=== PATIENT | female | born 1965 | race Caucasian/White ===

== ENCOUNTER 2017-05-25 12:39 | Inpatient (IN) | payer OTHER ==
[~2017-05-25] VITALS: Ht 182.9 cm; Wt 79.8 kg
[~2017-05-25 12:39] MED LIST: ALBU0.08 INH; ALBUAER2 INH; ARIP30TA3 PO; BACL10TA PO; CARB1TAB38 PO; DIVA500T59 PO; HYDR-5688 PO; LACO200T PO; TRAZ100T29 PO; ZONI50CA2 PO
[2017-05-25 14:16] VITALS: BP 141/90; PULSE 66; O2SAT 95
[2017-05-25] MEDS ORDERED: CLB100 PO (15:20)
[2017-05-25] MEDS ORDERED: TIOT1SPR INH (15:20)
[2017-05-25] MEDS ORDERED: IBUP-1428 PO (15:20)
[2017-05-25 15:34] VITALS: BP 141/90; PULSE 66; TEMP 36.5; O2SAT 95; Ht 182.9 cm; Wt 79.8 kg
[2017-05-25] MEDS ORDERED: DIVA500T3 PO (15:45)
[2017-05-25] MEDS ORDERED: ZONI50CA2 PO (15:45)
[2017-05-25] MEDS ORDERED: BRIV50TA PO (15:45)
[2017-05-25] MEDS ORDERED: ABL10 PO (15:45)
[2017-05-25] MEDS ORDERED: ONDANSETRON INJ 2 MG/ML 2 ML VIAL IV PRN (15:45)
[2017-05-25] MEDS ORDERED: POLYETHYLENE (MIRALAX) 17 GM PACK PO PRN (15:45)
[2017-05-25] MEDS ORDERED: CARB200T PO (15:45)
[2017-05-25] MEDS ORDERED: ARIP30TA3 PO ×2 (15:45)
[2017-05-25] MEDS ORDERED: CTF50 PO (15:45)
[2017-05-25] MEDS ORDERED: ACETAMINOPHEN 325 MG TAB PO PRN (15:45)
--- NOTE | 2017-05-25 15:48 | History and Physical ---
History & Physical Date & Time of Service: May 25, 2017 at 15:25 Chief Complaint: Multiple Seizures, Hx Of Brain Ca Primary Care Physician: Sudhakar Frye M.D. History of Present Illness Source: patient This is a 51-year-old female with PMHx of meningioma removal in 2010, chronic migraine, focal epilepsy with impairment of consciousness, chronic headaches, anxiety, COPD, gait disturbance, low back pain, and cervical radiculopathy and chronic tobacco abuse with 1.5 ppd x 40 years, who presents as a direct transfer from [facility] to [facility] after cluster seizures during MRI which was being performed today for evaluation of seizures. This was witnessed by lab technician and referred to our facility for seizure workup. The patient has seen Dr. Blanton with neurology in the past, most recently she was seen on March 04, 2017 as an outpatient. The patient also has history of psychogenic nonepileptic induced seizures and/or pseudoseizures. Her antiepileptic medications include Depakote ER 500 mg twice a day, carbamazepine 200 mg twice a day, Vimpat 200 BID, Briviact 25 mg BID, and has recently finished tapering off Zonegran due to side effects. She has had to use steroid injections, ketorolac and Phenergan injections for intractable migraine headaches in the past. She was also being seen by pain management for possible Botox injections for her chronic migraine headaches. She has a repeat follow- up this month with Dr. Blanton. The patient reports currently feeling very sore and has a left temporal headache rated 8/10. No photophobia or phonophobia, no sensitivity to smell. She denies any injury to the mouth or tongue during seizures. She does report a postictal phase of confusion. . Her vision is blurred slightly but has been improving this afternoon. Her main complaint is that she is hungry currently, and requesting her boyfriend go to get her a fried chicken sandwich. Past Medical/Surgical History Anxiety Cervical radiculopathy Chronic headaches Chronic migraine COPD Focal absolute C with impairment of consciousness Gait disturbance Low back pain Pseudoseizures Surgical history Meningioma removal in 2010 Left leg lipoma removal Benign breast biopsy Social History Smoking Status: Current Every Day Smoker (1.5 ppd x 40 yrs) Smokeless Tobacco Use: No Alcohol Use: none Drug Use: none Marital Status: Housing status: lives with significant other Occupational Status: disabled Allergies Coded Allergies: No Known Allergies (Unverified , 04/23/17) Home Medications Scheduled Albuterol (Ventolin), 2 PUFFS INH QID Baclofen (Lioresal), 10 MG PO TID Brivaracetam (Briviact), 50 MG PO BID Carbamazepine (Tegretol), 1 TAB PO BID Celecoxib (CeleBREX), 1 CAP PO BID Divalproex Sodium (Depakote Er), 1 TAB PO BID Lacosamide (Vimpat), 200 MG PO BID Trazodone Hcl (Trazodone), 100 MG PO HS Zonisamide (Zonegran), 150 MG PO BID Scheduled PRN Diclofenac Potassium (Diclofenac Potassium), 1 TAB PO TID PRN for Headache Ibuprofen (Motrin), 800 MG PO Q8H PRN for Moderate Pain Miscellaneous Medications Tiotropium [place] (Spiriva Respimat), 1 PUFF INH Review of Systems Constitutional: No fever, No chills, No sweats Eyes: + worsening of vision, + problem reported (blurred) ENT: No hearing loss, No trouble swallowing Respiratory: + cough, + wheezing, No sputum, No shortness of breath, No dyspnea on exertion, No dyspnea at rest Genitourinary - Female: No dysuria, No urinary frequency, No hematuria Neurologic: No memory loss, No paralysis, No numbness/tingling Psychiatric: No depression symptoms, No anxiety Endocrine: + fatigue Integumentary: No rash, No itch Physical Exam Vital Signs Date Time Temp Pulse Resp B/P (MAP) Pulse Ox O2 Delivery O2 Flow Rate FiO2 05/25/17 14:16 66 17 141/90 (107) 95 Room Air General Appearance: WD/WN, no apparent distress Head: normocephalic, atraumatic Eyes: PERRL, EOMI ENT: hearing grossly normal, pharynx normal, + pertinent finding (MMM) Neck: supple, no JVD Respiratory/Chest: no respiratory distress, no accessory muscle use, + pertinent finding (faint expiratory wheeze, + cough nonproductive, on room air) Cardiovascular: no murmur, normal peripheral pulses, + pertinent finding ( regular rhythm, + tachycardic) Abdomen/GI: normal bowel sounds, non tender, soft Back: normal inspection Neurologic/Psych: alert, normal mood/affect, normal reflexes, oriented x 3 Skin: normal color, warm/dry Impression Assessment and Plan This is a 51-year-old female with PMHx of meningioma removal in 2010, chronic migraine, focal epilepsy with impairment of consciousness, chronic headaches, anxiety, COPD, gait disturbance, low back pain, and cervical radiculopathy and chronic tobacco abuse with 1.5 ppd x 40 years, who presents as a direct transfer from [facility] to [facility] after cluster seizures during MRI which was being performed today for evaluation of seizures. Seizure/ pseudoseizure Chronic Migraine Focal epilepsey with impairment of consciousness - Direct admission from [facility], Admit to tele, currently in ICU for tele overflow - Neurology consulted- Dr. Blanton - Neuro checks Q4H for now - Ativan 1 mg Q1H prn for seizure activity - Continue current antiepileptic medications: Depakote ER 500 mg twice a day, carbamazepine 200 mg twice a day, Vimpat 200 BID, Briviact 25 mg BID - Check depakote and carbamazepine levels with fasting am labs Chronic Headache - Can continue ibuprofen 800 mg Q8H prn for headaches as outpatient. - Will need to discuss if pt is still seeing pain managment and if considering botox injections Mood disorder - ? bipolar disorder and borderline personality disorder - Pt was previously on abilify 30 mg daily, but per her report was d/c's 1 yr ago. She does not follow with a psychiatrist as an outpatient currently. - Likely that antiepileptics are also working as mood stabilizers. COPD Chronic Tobacco Abuse - Cessation of smoking encouraged - consider if pt would be a good candidate for smoking cessation with chantix? - Will order nicotine patch 21 mcg for now - Does not require supplemental O2 Cervical Radiculopathy Gait disturbance - stable DVT ppx: Teds, scds, heparin CODE STATUS: FULL CODE Disposition: From home, to assist with d/c planning. Level of Care Telemetry Resuscitation Status FULL RESUSCITATION VTE Prophylaxis Risk Level: Very Low Given or contraindicated: Unfractionated heparin SQ, T.E.D. Stockings, SCD's
[2017-05-25] MEDS ORDERED: DICLOFENAC SOD 50 MG PO PRN (16:00)
[2017-05-25 16:01] VITALS: BP 136/89; PULSE 75; TEMP 36.5; O2SAT 98
[2017-05-25] MEDS ORDERED: CLB/200 PO (16:27)
[2017-05-25] MEDS: [UNRECOGNIZED DRUG - REMARK] SCH ×2 (16:30→23:48)
[2017-05-25] MEDS ORDERED: LORAZEPAM 2 MG/ML 1 ML VIAL IV PRN (16:45)
[2017-05-25 16:46] LABS: MEAN CORPUSCULAR HEMOGLOBIN 31.8 pg (25-34); MEAN CORPUSCULAR HGB CONC 33.5 g/dl (32-36); MEAN PLATELET VOLUME 8.9 fL (7.4-10.4); PLATELET COUNT 201 K/uL (130-400); RED BLOOD COUNT 4.21 M/uL (4.2-5.4); WHITE BLOOD COUNT 6.17 K/uL (4.8-10.8)
[2017-05-25 16:58] LABS: PROTHROMBIN TIME (PATIENT) 10.6 SECONDS (9.0-12.0)
[2017-05-25] MEDS ORDERED: ALBUTEROL HFA 8 GM INHALER INH SCH (17:00)
[2017-05-25] MEDS ORDERED: ALBUTEROL HFA 8 GM INHALER INH PRN (17:00)
[2017-05-25 17:21] LABS: BUN/CREATININE RATIO 22.6 (10-20); CALCIUM 8.6 mg/dl (8.5-10.1); CREATININE 0.53 mg/dl (0.60-1.20); POTASSIUM 3.6 mmol/L (3.5-5.1)
[2017-05-25] MEDS ORDERED: IBUPROFEN 800 MG TAB PO PRN (18:30)
[2017-05-25 18:50] VITALS: PULSE 72; O2SAT 98
[2017-05-25] MEDS: ALBUT/IPRATROP 3MG/0.5MG NEB 3 ML VIAL INH SCH (18:51)
[2017-05-25] MEDS ORDERED: PNEUMOCOCCAL ADMINISTRATION CHARGE ONE (19:00)
[2017-05-25] MEDS: KETOROLAC TROMETHAMINE 30 MG/ML VIAL IV PRN (19:19)
[2017-05-25 20:00] VITALS: BP 155/95; PULSE 73; TEMP 36.6; O2SAT 97
[2017-05-25] MEDS ORDERED: PNEUMOCOCCAL POLYSACCHARIDES 25 MCG/0.5 ML VIAL/SYR IM. ONE (20:00)
[2017-05-25] MEDS: DIVALPROEX 500 MG EXTENDED RELEASE TAB PO SCH (21:00)
[2017-05-25] MEDS ORDERED: ZONISAMIDE 25 MG CAP PO SCH (21:00)
[2017-05-25] MEDS ORDERED: TRAZODONE HCL 100 MG TAB PO PRN (21:00)
[2017-05-25] MEDS: CARBAMAZEPINE 200 MG TAB PO SCH (21:00)
[2017-05-25] MEDS ORDERED: TRAZODONE HCL 100 MG TAB PO SCH (21:00)
[2017-05-25] MEDS: BACLOFEN 10 MG TAB PO SCH (21:00)
[2017-05-25] MEDS: LACOSAMIDE 50 MG TAB PO SCH (21:00)
[2017-05-25] MEDS ORDERED: ZONISAMIDE 100 MG CAP PO SCH (21:00)
[2017-05-25] MEDS: HEPARIN SOD 5000 UNIT/0.5 ML CARP SQ SCH (22:00)
[2017-05-25 23:59] VITALS: BP 125/69; PULSE 64; TEMP 36.6; O2SAT 95
[2017-05-26] MEDS ORDERED: KETOROLAC TROMETHAMINE 30 MG/ML VIAL IV PRN (01:00)
[2017-05-26] MEDS: KETOROLAC TROMETHAMINE 30 MG/ML VIAL IV PRN ×3 (01:30→13:48)
[2017-05-26 04:00] VITALS: BP 144/83; PULSE 61; TEMP 36.5; O2SAT 95
[2017-05-26 05:50] LABS: BASO % 0.3 %; BASO ABS # 0.02 K/uL (0-0.2); COMPLETE YES; EOS % 1.5 %; HEMATOCRIT 40.6 % (37-47); IG% 0.3 %; LYMPH % 30.6 %; LYMPH ABS # 2.26 K/uL (1.2-3.4); MEAN CELL VOLUME 95.5 fL (80-100); MEAN CORPUSCULAR HEMOGLOBIN 31.8 pg (25-34); MEAN CORPUSCULAR HGB CONC 33.3 g/dl (32-36); MEAN PLATELET VOLUME 8.9 fL (7.4-10.4); MONO % 8.8 %; NEUT % 58.5 %; PLATELET COUNT 177 K/uL (130-400); RED BLOOD COUNT 4.25 M/uL (4.2-5.4); WHITE BLOOD COUNT 7.39 K/uL (4.8-10.8)
[2017-05-26 06:15] LABS: BUN/CREATININE RATIO 31.4 (10-20); CALCIUM 8.4 mg/dl (8.5-10.1); CREATININE 0.64 mg/dl (0.60-1.20); POTASSIUM 3.8 mmol/L (3.5-5.1)
[2017-05-26] MEDS: HEPARIN SOD 5000 UNIT/0.5 ML CARP SQ SCH (06:30)
[2017-05-26 07:40] VITALS: PULSE 74; O2SAT 97
[2017-05-26] MEDS: ALBUT/IPRATROP 3MG/0.5MG NEB 3 ML VIAL INH SCH ×2 (07:43→11:20)
[2017-05-26] MEDS: [UNRECOGNIZED DRUG - REMARK] SCH (08:00)
[2017-05-26] MEDS: DIVALPROEX 500 MG EXTENDED RELEASE TAB PO SCH (08:18)
[2017-05-26] MEDS: BACLOFEN 10 MG TAB PO SCH ×2 (08:19→13:48)
[2017-05-26] MEDS: CARBAMAZEPINE 200 MG TAB PO SCH (08:19)
[2017-05-26] MEDS: LACOSAMIDE 50 MG TAB PO SCH (08:19)
[2017-05-26 08:25] VITALS: BP 141/73; PULSE 78; TEMP 36.7; O2SAT 98
[2017-05-26] MEDS ORDERED: ARIPIprazole TAB 15 MG TAB PO SCH (09:00)
[2017-05-26] MEDS ORDERED: NICOTINE 21 MG/24 HR TDSY TD SCH (09:00)
--- NOTE | 2017-05-26 11:08 | Neurology Consultation ---
Neurology Consultation Date of Consultation: May 26, 2017. Attending Physician: Alisa Ledesma DO Primary Care Physician: Sudhakar Frye M.D. Reason for Consultation: Patient is a 51-year-old, who was asked to see the request of Yohana Hill PA-C, and Dr. Schwab, for neurologic consultation regarding serial seizures. History of Present Illness Source: patient, caregiver, clinic records, hospital records Prior to surgery in 2010, the patient tells me that she has had no history of seizures or significant headaches. CT scan incidentally showed a large left- sided meningioma (about the size of a "golf ball") which was subsequently removed by a neurosurgeon at [facility]. 2 weeks after surgery she had her first seizure that she has had intermittent seizures since. The seizures have been refractory to multiple medications, and she has tried and failed phenytoin, levetiracetam, Tegretol, and topiramate She has been followed by Dr. Blanton since May 2015. An EEG at that time showed some focal irritability and potentially epileptogenic activity in the left frontotemporal head region with focal background slowing in this region also, particularly posteriorly. She last saw Dr. Blanton in February 2017. At that time, she was tapering the patient off Zonegran which she has been on for almost 2 months now. She has been on Briviact 5 mg twice a day started earlier this summer. She is on Depakote ER 500 mg twice a day and higher doses gave her side effects. She takes carbamazepine 200 mg twice a day and has no side effects. In her note , Dr. Blanton wondered about tapering this off. She has been on Vimpat 200 mg twice a day and believes that this medicine helps her considerably and has no side effects. The patient averages 1 or 2 seizures per month. She can get some morning of nausea and tingling in her right upper extremity as well as lightheadedness all lasting for about 10 seconds. Then she has no recall and will wake up supposedly having a generalized tonic-clonic seizure or a complex partial seizure. She has had testing at [place] and there has been at least one proven pseudoseizure. Her last seizure prior to May 25 was about 1 week or so previous when she said she had 5 seizures in one day. She had stress. The patient tells me that she never had significant headaches prior to her meningioma removal. He has had good help with Botox for the last 6 months and averages about a headache once a week. She will start out with pain around her higher protestant area and it will progress to a bioccipital and bifrontal pounding sharp pain with photophobia, sonophobia, nausea, and vomiting. The patient tells me that she's had significant depression and anxiety since 1994, when her mother . She is going to be seeing psychiatry in June of this year. The patient tells me that she has 2 tiny aneurysm discovered at the time of surgery but these do not need additional treatment. On May 25, she woke at 0530 hours as usual feeling well. She was not sick or ill and took her medicine as usual. She went to [facility] for her MRI of the cervical and lumbar spine at 0900 hours. Some time when the MRIs are completed as she was coming out of the machine she felt the typical symptoms that warn her that a seizure is coming. She told attacks and the next thing she remembers is "waking up in the ambulance" coming to our institution. Apparently she had a cluster of 4 or 5 tonic-clonic seizures while in the MRI area and in the [facility] emergency room. He was transferred to our institution. May 25: 1416 hours, pulse was 66, respiratory rate 17, O2 saturation 95% and blood pressure 141/90. Her neurologic examination was largely unremarkable. She has had no seizure activity since admission here, as reported by nursing staff. Patient herself feels back to baseline now. She does have some mild pressure in her head which is normal for her and she feels "sore all over" in her muscles which is typical after seizures. In the hospital, CBC and chem profile were unremarkable. This morning, Depakote level was 33 and carbamazepine level 5.2. 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 Proven pseudoseizures as well. Intermittent, severe, refractory migraine headaches, helped with Botox COPD Long-standing anxiety depressive disorder Chronic spine pain cervical and lumbar regions Post meningioma removal left temporal head region Post appendectomy Total abdominal hysterectomy age 34 Left leg lipoma removal in the past Left shoulder surgery Right breast biopsy, benign Family History at 65 of metastatic uterine cancer Father age 81 with heart issues and diabetes She has one son age 31 and 3 grandchildren Social History Patient smokes a half a pack of cigarettes per day for 40 years. Patient does not use alcohol. 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 Following surgery she has been disabled and unable to work and is on social security disability because of her seizure disorder Smoking Status: Current every day smoker Smokeless Tobacco Use: No Alcohol Use: none Drug Use: none Marital Status: Housing Status: lives with significant other Occupation Status: disabled Allergies Coded Allergies: No Known Allergies (Unverified , 04/23/17) Current Inpatient Medications Current Inpatient Medications Medications (Trade) Dose Ordered Sig/Soha Route Start Time Stop Time Status Last Admin Dose Admin Heparin Sodium (Porcine) (Heparin Sq 5000 Unit/0.5ml) 5,000 unit Q8 SQ 05/25/17 22:00 06/24/17 21:59 05/26/17 06:30 5,000 UNIT Acetaminophen (Tylenol Tab) 650 mg Q4H PRN PO 05/25/17 15:45 06/24/17 15:44 Ondansetron HCl (Zofran Inj) 4 mg Q6H PRN IV 05/25/17 15:45 06/24/17 15:44 Polyethylene (Miralax Powder Packet) 17 gm DAILY PRN PO 05/25/17 15:45 06/24/17 15:44 Baclofen (Lioresal Tab) 10 mg TID PO 05/25/17 21:00 06/24/17 20:59 05/26/17 08:19 10 MG Carbamazepine (Tegretol Tab) 200 mg BID PO 05/25/17 21:00 06/24/17 20:59 05/26/17 08:19 200 MG Divalproex Sodium (Depakote Extended Rel Tab) 500 mg BID PO 05/25/17 21:00 06/24/17 20:59 05/26/17 08:18 500 MG Miscellaneous Information (Order Awaiting Action) 1 ea QS N/A 05/25/17 16:30 06/24/17 16:29 Diclofenac Sodium (Voltaren-Substitute) 50 mg TID PRN PO 05/25/17 16:00 06/24/17 15:59 Lacosamide (Vimpat Tab) 200 mg BID PO 05/25/17 21:00 06/24/17 20:59 05/26/17 08:19 200 MG Nicotine (Nicoderm Cq 21MG Patch) 1 patch QAM TD 05/26/17 09:00 06/25/17 08:59 05/26/17 08:18 1 PATCH Miscellaneous (Remove Nicoderm Patch) 1 ea HS N/A 05/26/17 09:00 06/25/17 08:59 05/26/17 09:05 1 EA Albuterol (Ventolin Hfa Inhaler) 2 puffs QID PRN INH 05/25/17 17:00 06/24/17 16:59 Albuterol/ Ipratropium (Duoneb) 3 ml QIDR INH 05/25/17 20:00 06/24/17 19:59 05/26/17 07:43 3 ML Lorazepam (Ativan Inj) 1 mg Q1H PRN IV 05/25/17 16:45 06/24/17 16:44 Trazodone HCl (Desyrel Tab) 100 mg HS PRN PO 05/25/17 21:00 06/24/17 20:59 Ibuprofen (Motrin Tab) 800 mg TID PRN PO 05/25/17 18:30 06/24/17 18:29 Ketorolac Tromethamine (Toradol Inj) 30 mg ONE PRN IV 05/25/17 18:30 05/30/17 18:29 05/26/17 08:16 30 MG Ketorolac Tromethamine (Toradol Inj) 30 mg Q6H PRN IV 05/26/17 01:00 05/31/17 00:59 Review of Systems Constitutional: No weakness, No fatigue Eyes: No worsening of vision, No diplopia ENT: No hearing loss, No tinnitus Respiratory: + cough, No shortness of breath Cardiovascular: No chest pain, No palpitations Abdomen: No pain, No nausea Musculoskeletal: + muscle pain, No joint pain Genitourinary - Female: No dysuria, No urinary incontinence Neurologic: No weakness, No numbness/tingling, No balance problems Psychiatric: + depression symptoms, + anxiety Endocrine: No fatigue Hematologic / Lymphatic: No abnormal bleeding/bruising Integumentary: No rash Allergic / Immunologic: No hives Physical Exam Vital Signs (Past 24 Hrs): Date Time Temp Pulse Resp B/P (MAP) Pulse Ox O2 Delivery O2 Flow Rate FiO2 05/26/17 08:25 36.7 78 19 141/73 (95) 98 Room Air 05/26/17 08:00 Room Air 05/26/17 07:40 74 16 97 Room Air 05/26/17 04:00 Room Air 05/26/17 04:00 36.5 61 16 144/83 (103) 95 Room Air 05/25/17 23:59 36.6 64 20 125/69 (87) 95 Room Air 05/25/17 23:59 Room Air 05/25/17 20:00 Room Air 05/25/17 20:00 36.6 73 21 155/95 (115) 97 Room Air 05/25/17 18:50 72 16 98 Room Air 05/25/17 16:01 36.5 75 19 136/89 (105) 98 Room Air 05/25/17 15:34 36.5 66 17 141/90 95 Room Air 05/25/17 14:16 66 17 141/90 (107) 95 Room Air Patient is right-handed. The patient is awake and alert. Speech is normal without aphasia or dysarthria. Mentation and thought processes are intact with orientation and normal fund of knowledge. Mood and affect are normal and appropriate. Appearance and grooming are normal. The discs are sharp with positive venous pulsations. There are no exudates, hemorrhages, or blood vessel changes seen. Pupils are 4mm bilaterally and reactive to light. Extraocular eye muscles are intact without nystagmus. Visual acuity and visual grant seem normal grossly to confrontation. There are no deficits to sensation of the face bilaterally. Corneal reflexes are positive bilaterally. Facial strength and symmetry is normal bilaterally. Hearing seems intact grossly to voice and finger rub. Palate moves well without asymmetry. There is normal sternocleidomastoid and trapezius strength bilaterally. Tongue is midline with good strength bilaterally. Neck is with full range of motion without discomfort. There are no cervical bruits. There are no cranial or ocular bruits. Heart is without murmur. Cervical, thoracic, and lumbar spine are nontender to palpation. Gait was not tested but stance sitting up in bed is normal With outstretched arms there is no drift. There are no resting, postural, or action tremors. There is no ataxia with [id number] testing. There is good facility in the hands. There are no abnormal involuntary movements noted. Motor strength is 5/5 diffusely in the left arm and leg both proximally and distally. In the right upper extremity and right lower extremity she has 4+/5 strength diffusely (his which she says is from her surgery) but I detect giveaway weakness with the exam, thus questioning full effort. The limbs have good tone without rigidity or spasticity, and there is no atrophy noted. Muscle bulk is normal, there is no tenderness, no myotonia noted to percussion, and no fasciculations seen. Sensory examination is intact to pin and touch throughout all four limbs. Reflexes are 2/4 in the biceps, triceps, brachioradialis, quadriceps, and Achilles tendons bilaterally. Toes are downgoing with plantar stimulation bilaterally. Peripheral pulses are present and of normal quality distally in all four limbs. There is no peripheral edema noted. Laboratory Results Past 24 Hours: 05/26/17 05:19 Red Blood Count 4.25, Mean Corpuscular Volume 95.5, Mean Corpuscular Hemoglobin 31.8, Mean Corpuscular Hemoglobin Concent 33.3, Mean Platelet Volume 8.9, Neutrophils (%) (Auto) 58.5, Lymphocytes (%) (Auto) 30.6, Monocytes (%) (Auto) 8.8, Eosinophils (%) (Auto) 1.5, Basophils (%) (Auto) 0.3, Neutrophils # (Auto) 4.33, Lymphocytes # (Auto) 2.26, Monocytes # (Auto) 0.65, Eosinophils # (Auto) 0.11, Basophils # (Auto) 0.02 05/26/17 05:19 Test 05/25/17 16:08 05/26/17 05:19 Prothrombin Time 10.6 SECONDS (9.0-12.0) Prothromb Time International Ratio 1.0 (0.9-1.1) White Blood Count 7.39 K/uL (4.8-10.8) Red Blood Count 4.25 M/uL (4.2-5.4) Hemoglobin 13.5 g/dL (12.0-16.0) Hematocrit 40.6 % (37-47) Mean Corpuscular Volume 95.5 fL (80-100) Mean Corpuscular Hemoglobin 31.8 pg (25-34) Mean Corpuscular Hemoglobin Concent 33.3 g/dl (32-36) Platelet Count 177 K/uL (130-400) Mean Platelet Volume 8.9 fL (7.4-10.4) Neutrophils (%) (Auto) 58.5 % Lymphocytes (%) (Auto) 30.6 % Monocytes (%) (Auto) 8.8 % Eosinophils (%) (Auto) 1.5 % Basophils (%) (Auto) 0.3 % Neutrophils # (Auto) 4.33 K/uL (1.4-6.5) Lymphocytes # (Auto) 2.26 K/uL (1.2-3.4) Monocytes # (Auto) 0.65 K/uL (0.11-0.59) Eosinophils # (Auto) 0.11 K/uL (0-0.5) Basophils # (Auto) 0.02 K/uL (0-0.2) RDW Standard Deviation 45.8 fL (36.4-46.3) RDW Coefficient of Variation 13.1 % (11.5-14.5) Immature Granulocyte % (Auto) 0.3 % Immature Granulocyte # (Auto) 0.02 K/uL (0.00-0.02) Anion Gap 5.0 mmol/L (3-11) Est Creatinine Clear Calc Drug Dose 122.7 ml/min Estimated GFR () 121.4 Estimated GFR (Non- 104.8 BUN/Creatinine Ratio 31.4 (10-20) Calcium Level 8.4 mg/dl (8.5-10.1) Valproic Acid (Depakene) Level 33 mcg/ml (50-100) Carbamazepine (Tegretol) Level 5.2 mcg/ml (4-12) Date/Time Source Procedure Growth Status 05/25/17 14:30 Nasal MRSA DNA Surveillance Screen - Final Specimen Negative for MRSA by DNA Probe Complete Impression 1. Epilepsy This has been refractory to multiple medication. Unfortunately she is very difficult because she has known seizures (with a known left frontotemporal area of potentially epileptogenic activity) with proven pseudoseizures in the past. I have no way of knowing of these events yesterday were true epilepsy versus pseudoseizures, although her mental status and exam was quite normal which would be somewhat atypical for multiple serial seizures (as I would expect a prolonged post ictal state) Currently, neurologic examination is unremarkable. She does have some right- sided weakness compared to the left but this is somewhat inconsistent and I detect giveaway weakness on the exam. 2. Chronic intermittent migrainous and other headaches. These have been since the meningioma surgery and refractory to medication also. Fortunately she has some relief with Botox 3. Significant depression and anxiety. 4. Status post left temporal area meningioma removal Plan 1. I see no need for additional neurologic testing at this time. 2. Anticonvulsant medications: Increase Briviact to 50mg twice daily. She will have to bring this in from home as we do not have this on formulary here Keep carbamazepine 200 mg twice a day. Keep Depakote ER 500 mg twice a day. Keep Vimpat 200 mg twice a day Remain off Zonegran and all other anticonvulsants. 3. I recommend she follow up with pain management as an outpatient for her headaches and continued Botox 4. I recommend she keep her psychiatry appointment in June 2017 5. Follow-up with Dr. Blanton as an outpatient in the next 1-2 weeks. I spoke with Dr. Blanton regarding this case including diagnoses and treatment options. I spoke with Dr. Ledesma regarding this case including diagnoses and treatment options.
[2017-05-26 11:21] VITALS: PULSE 78; O2SAT 98
[2017-05-26 12:00] VITALS: BP 120/66; PULSE 85; TEMP 36.6; O2SAT 97
[2017-05-26] MEDS ORDERED: BRIV50TA PO (12:54)
--- NOTE | 2017-05-26 12:55 | Discharge Instructions ---
Discharge Instructions Date of Service May 26, 2017. Admission Reason for Admission: Multiple Seizures, Hx Of Brain Ca Discharge Discharge Diagnosis / Problem: Seizures Discharge Goals Goal(s): Decrease discomfort, Improve function, Increase independence Activity Recommendations Activity Limitations: resume your previous activity . Instructions / Follow-Up Instructions / Follow-Up Dr. Puente next week Current Hospital Diet Patient's current hospital diet: Regular Diet Discharge Diet Recommended Diet: Regular Diet Pending Studies Studies pending at discharge: no Medical Emergencies . Who to Call and When: Medical Emergencies: If at any time you feel your situation is an emergency, please call 911 immediately. . Non-Emergent Contact Non-Emergency issues call your: Neurologist . . "Provider Documentation" section prepared by Alisa Ledesma. . VTE Core Measure Inpt VTE Proph given/why not?: Unfractionated heparin Grace MENDIETA, SCD 's
--- NOTE | 2017-05-26 12:57 | Discharge Summary ---
Discharge Summary Date of Service May 26, 2017. Discharge Summary Admission Date: May 25, 2017 at 14:10 Discharge Date: May 26, 2017 Discharge Disposition: Home Principal Diagnosis: Seizures Problems/Secondary Diagnoses: Focal epilepsy Pseudoseizures Meningioma s/p removal 2010 Chronic migraines COPD Anxiety Low back pain Consultations: Dr. De La Fuente Medication Reconciliation Continued Medications: Albuterol (Ventolin) Inh 2 PUFFS INH QID for 5 Days, INHALER Baclofen (Lioresal) 10 Mg Tab 10 MG PO TID, TAB Brivaracetam (Briviact) 50 Mg Tab 50 MG PO BID for 30 Days, #60 (This prescription has been renewed) Carbamazepine (Tegretol) 200 Mg Tab 1 TAB PO BID for 30 Days, #60 TAB 1 Refill Celecoxib (CeleBREX) 200 Mg Cap 1 CAP PO BID for 30 Days, #60 CAP 2 Refills Diclofenac Potassium (Diclofenac Potassium) 50 Mg Tab 1 TAB PO TID PRN for Headache for 10 Days, #30 TAB Divalproex Sodium (Depakote Er) 500 Mg Tab 1 TAB PO BID for 30 Days, #60 TAB 2 Refills Ibuprofen (Motrin) 800 Mg Tab 800 MG PO Q8H PRN for Moderate Pain, TAB Lacosamide (Vimpat) 200 Mg Tab 200 MG PO BID Tiotropium [place] (Spiriva Respimat) 2.5 Mcg/Act Spr 1 PUFF INH, INHALER Trazodone Hcl (Trazodone) 100 Mg Tab 100 MG PO HS PRN for Sleep, TAB Discharge Exam Pt is doing well and is asking for discharge. She has had no further seizures. She has no headache at present. Pt denies fever, SOB, chest pain, abd pain, n /v/c/d, LE pain or swelling. Tolerating PO without issue. Physical Exam: General Appearance: WD/WN, no apparent distress Respiratory/Chest: normal breath sounds, no respiratory distress Cardiovascular: regular rate, rhythm, no edema Abdomen / GI: non tender, soft Extremities: no calf tenderness, no pedal edema Neurologic/Psychiatric: alert, normal mood/affect, oriented x 3 Skin: normal color, warm/dry Hospital Course Per H&P: This is a 51-year-old female with PMHx of meningioma removal in 2010, chronic migraine, focal epilepsy with impairment of consciousness, chronic headaches, anxiety, COPD, gait disturbance, low back pain, and cervical radiculopathy and chronic tobacco abuse with 1.5 ppd x 40 years, who presents as a direct transfer from [facility] to [facility] after cluster seizures during MRI which was being performed today for evaluation of seizures. This was witnessed by laser technician and referred to our facility for seizure workup. The patient has seen Dr. Blanton with neurology in the past, most recently she was seen on March 04, 2017 as an outpatient. The patient also has history of psychogenic nonepileptic induced seizures and/or pseudoseizures. Her antiepileptic medications include Depakote ER 500 mg twice a day, carbamazepine 200 mg twice a day, Vimpat 200 BID, Briviact 25 mg BID, and has recently finished tapering off Zonegran due to side effects. She has had to use steroid injections, ketorolac and Phenergan injections for intractable migraine headaches in the past. She was also being seen by pain management for possible Botox injections for her chronic migraine headaches. She has a repeat follow- up this month with Dr. Blanton. The patient reports currently feeling very sore and has a left temporal headache rated 8/10. No photophobia or phonophobia, no sensitivity to smell. She denies any injury to the mouth or tongue during seizures. She does report a postictal phase of confusion. Her vision is blurred slightly but has been improving this afternoon. Her main complaint is that she is hungry currently, and requesting her boyfriend go to get her a fried chicken sandwich. Course: Seizure/ pseudoseizure Chronic Migraine Focal epilepsey with impairment of consciousness Neuro recs for increased Brivaracetam as noted above Other meds to remain the same Chronic Headache - Can continue ibuprofen 800 mg Q8H prn for headaches as outpatient. - Ongoing pain managment as prior to admission Mood disorder - ? bipolar disorder and borderline personality disorder - Pt was previously on abilify 30 mg daily, but per her report was d/c's 1 yr ago. She does not follow with a psychiatrist as an outpatient currently. - Likely that antiepileptics are also working as mood stabilizers. COPD Chronic Tobacco Abuse - Cessation of smoking encouraged Total Time Spent: Greater than 30 minutes This includes examination of the patient, discharge planning, medication reconciliation, and communication with other providers. Discharge Instructions Please refer to the electronic Patient Visit Report (Discharge Instructions) for additional information. Follow-Up Dr. Puente next week Additional Copies To Sudhakar Frye M.D.
[2017-05-26 13:30] VITALS: BP 120/66; PULSE 85; TEMP 36.6; O2SAT 97
== END 2017-05-26 15:15 | disposition home or self-care (01) | DRG 101 ==
LOC: C.MSICU 14:10 → UNDOADMIN 14:10 → C.MSICU 15:47
PROVIDERS: ADMIT Hospitalist; ATTEND Family Medicine
DX: G40.89 Other seizures (principal); G40.109 Localization-related (focal) (partial) symptomatic epilepsy and epileptic syndromes with simple partial seizures, not intractable, without status epilepticus; G43.709 Chronic migraine without aura, not intractable, without status migrainosus; J44.9 Chronic obstructive pulmonary disease, unspecified; F41.9 Anxiety disorder, unspecified; M54.5 Low back pain; R26.9 Unspecified abnormalities of gait and mobility; M54.12 Radiculopathy, cervical region; F17.210 Nicotine dependence, cigarettes, uncomplicated; F31.9 Bipolar disorder, unspecified; F60.3 Borderline personality disorder; Z86.011 Personal history of benign neoplasm of the brain; Z79.899 Other long term (current) drug therapy; Z23 Encounter for immunization; Z79.1 Long term (current) use of non-steroidal anti-inflammatories (NSAID)

== ENCOUNTER → 2017-07-01 | Outpatient (CLI) | payer OTHER ==
[~2017-07-01] MED LIST changes: -ALBU0.08 INH; -ARIP30TA3 PO; +BRIV50TA PO; -CARB1TAB38 PO; +CARB200T PO; +CLB/200 PO; +CTF50 PO; +DIVA500T3 PO; -DIVA500T59 PO; -HYDR-5688 PO; +IBUP-1428 PO; +TIOT1SPR INH; -ZONI50CA2 PO
--- NOTE | 2017-07-01 10:44 | DIAGNOSTIC IMAGING REPORT ---
LEFT HIP 2 VIEWS HISTORY: L HIP PAIN, SACROILIITIS COMPARISON: None. FINDINGS: There is no fracture or dislocation. Soft tissues are unremarkable. No radiopaque foreign bodies. Cartilage spaces are maintained for age. IMPRESSION: No significant abnormality within the left hip. Electronically signed by: Parag Romero M.D. 07/01/2017 10:42 AM Dictated Date/Time: 07/01/2017 10:41 AM
--- NOTE | 2017-07-01 10:45 | DIAGNOSTIC IMAGING REPORT ---
SI JOINTS 3 OR MORE VIEWS CLINICAL HISTORY: L HIP PAIN, SACROILIITIS COMPARISON STUDY: None. FINDINGS: Bilateral sacroiliac joints are within normal limits for age. No significant degenerative changes. No erosions identified. The sacrum appears intact. IMPRESSION: No significant abnormality within the bilateral sacroiliac joints. Electronically signed by: Parag Romero M.D. 07/01/2017 10:43 AM Dictated Date/Time: 07/01/2017 10:43 AM
== END | disposition home or self-care (01) ==
LOC: C.RADBC 10:10
PROVIDERS: ATTEND Physician Assistant
DX: M25.552 Pain in left hip (principal); M46.1 Sacroiliitis, not elsewhere classified